=== PATIENT | male | born 1970 | race African-American/Black ===

== ENCOUNTER 2018-07-27 12:16 | Emergency (ER) | payer SELFPAY | END 2018-07-27 12:36 | disposition home or self-care (01) | LOC: BURERS 12:16 | DX: J18.9 Pneumonia, unspecified organism (principal); F17.290 Nicotine dependence, other tobacco product, uncomplicated | CPT/HCPCS: 99283 ==

== ENCOUNTER 2018-08-08 10:35 | Emergency (ER) | payer OTHER, SELFPAY | END 2018-08-08 10:55 | disposition home or self-care (01) | LOC: BURERS 10:35 | DX: R05 Cough (principal); F17.210 Nicotine dependence, cigarettes, uncomplicated | CPT/HCPCS: 99406 ==

== ENCOUNTER 2018-08-30 19:06 | Emergency (ER) | payer OTHER ==
--- NOTE | 2018-08-30 23:04 | RAD ---
LEFT RIBS WITH PA CHEST: 08/30/18 No fractures were appreciated. All ribs currently appear intact. The heart is normal in size. The med iastinum shows no widening or shift. The lungs are fully inflated and clear. There are no effusions. No free air is seen beneath the diaphragm. There is probably an old trauma to the distal left clavicl e. IMPRESSION: No acute thoracic finding. POS: HOME
== END 2018-08-30 19:42 | disposition home or self-care (01) ==
LOC: BURERS 19:06
DX: S23.3XXA Sprain of ligaments of thoracic spine, initial encounter (principal); F17.210 Nicotine dependence, cigarettes, uncomplicated; V43.62XA Car passenger injured in collision with other type car in traffic accident, initial encounter

== ENCOUNTER 2018-11-23 10:24 | Emergency (ER) | payer OTHER | END 2018-11-23 10:50 | disposition home or self-care (01) | LOC: BURERS 10:24 | DX: R05 Cough (principal); F17.210 Nicotine dependence, cigarettes, uncomplicated | CPT/HCPCS: 99281 ==

== ENCOUNTER 2018-12-01 15:25 | Outpatient (CLI) | payer OTHER ==
--- NOTE | 2018-12-01 21:41 | RAD ---
CHEST TWO VIEWS 12/01/18 Comparison is made with the 08/30/18 study. The heart is normal in size and the lungs are clear. There is no infiltrate or effusion. The mediasti num appears normal. The trachea is midline. IMPRESSION: No acute findings. POS: HOME
== END 2018-12-01 15:26 | disposition home or self-care (01) ==
LOC: BURRAD 15:25
PROVIDERS: ATTEND Family Medicine
DX: R05 Cough (principal)
CPT/HCPCS: 71046

== ENCOUNTER 2019-06-17 00:32 | Emergency (ER) | payer OTHER ==
[2019-06-17] MEDS ORDERED: Ibuprofen 200 MG TAB ONE (01:13)
--- NOTE | 2019-06-17 10:36 | RAD ---
LEFT HAND 3 VIEWS: Date: 06/17/19 There is a fracture through the neck of the second metacarpal. There is some anterior and radial side displacement of the second metacarpal head. The remainder of the hand appeared intact. An old healed fracture involving the DIP joint of the little finger was noted. IMPRESSION: Acute displaced fracture of the second metacarpal neck. POS: HOME
--- NOTE | 2019-06-17 10:42 | RAD ---
RIGHT HAND 3 VIEWS: Date: 06/17/19 There is a flexion deformity of the DIP joint of the little finger. Small finger fractures might be m issed on this study as might some carpal fractures due to the positioning of the hand and overlapping devices. No gross acute fracture identified. There appears to have been an old healed injury at the base of the first metacarpal. IMPRESSION: Evidence of old injuries, but no evidence of acute findings. Note: The sensitivity of this exam is reduced in several areas due to some of the factors listed abo ve. If patient persists, a repeat series would be recommended. POS: HOME
== END 2019-06-17 01:20 ==
LOC: BURERS 00:32
DX: S62.330A Displaced fracture of neck of second metacarpal bone, right hand, initial encounter for closed fracture (principal); F17.200 Nicotine dependence, unspecified, uncomplicated; W22.01XA Walked into wall, initial encounter
CPT/HCPCS: 26600